=== PATIENT | female | born 1985 | race Caucasian/White ===

== ENCOUNTER 2022-09-29 23:53 | Emergency (ER) | payer BC, MEDICAID ==
[2022-09-30] MEDS ORDERED: Sodium Chloride 0.9% 10 ML Syringe FLUSH PRN (00:14)
[2022-09-30] MEDS ORDERED: levETIRAcetam Soln 500 MG/5 ML Cup PO ONE (00:15)
[2022-09-30 00:24] LABS: BASOPHILS ABSOLUTE AUTO 0.1 x10^3/uL (0.0-0.2); BASOPHILS PERCENT AUTO 0.7 % (0.2-1.2); EOSINOPHILS ABSOLUTE AUTO 0.3 x10^3/uL (0.0-0.5); HEMATOCRIT 36.4 % (33.0-47.0); IMMATURE GRAN ABSOLUTE AUTO 0.01 x10^3/uL (0.00-0.07); LYMPHOCYTES ABSOLUTE AUTO 2.8 x10^3/uL (1.0-4.8); LYMPHOCYTES PERCENT AUTO 29.1 % (25.0-50.0); MEAN CORPUSCULAR HGB CONC 35.7 g/dL (32.0-36.0); MEAN CORPUSCULAR VOLUME 84.1 fL (78.0-93.0); MONOCYTES ABSOLUTE AUTO 1.1 x10^3/uL (0.0-0.8); MONOCYTES PERCENT AUTO 11.6 % (2.0-11.0); NEUTROPHILS ABSOLUTE AUTO 5.3 x10^3/uL (1.8-7.7); NEUTROPHILS PERCENT AUTO 55.5 % (50.0-80.0); PLATELET COUNT,PLT 271 x10^3/uL (130-400); RED BLOOD CELL COUNT 4.33 x10^6/uL (4.00-5.50); WHITE BLOOD CELL COUNT,WBC 9.6 x10^3/uL (4.0-10.0)
[2022-09-30] MEDS ORDERED: levETIRAcetam 500 MG Tab PO ONE ×2 (00:33→00:37)
[2022-09-30 00:48] LABS: A/G RATIO 1.27; ALANINE AMINOTRANSFERASE,ALT 17 U/L (14-59); ALBUMIN 3.8 g/dL (3.4-5.0); ALKALINE PHOSPHATASE 48 U/L (46-116); ASPARTATE AMNIOTRANSFERASE,AST 17 U/L (15-37); BILIRUBIN TOTAL 0.3 mg/dL (0.2-1.0); BLOOD UREA NITROGEN,BUN 8 mg/dL (7-18); CALCIUM 8.6 mg/dL (8.5-10.1); CARBON DIOXIDE,CO2 27 mmol/L (21-32); CHLORIDE,CL 109 mmol/L (98-107); GLUCOSE RANDOM 78 mg/dL (70-99); PROTEIN TOTAL,TP 6.8 g/dL (6.4-8.2); SODIUM,NA 145 mmol/L (136-145); TSH ULTRASENSITIVE 1.172 uIU/mL (0.358-3.74)
[2022-09-30 00:49] LABS: ESTIMATED GFR 75 mL/min (>=60); ETHANOL BLOOD MEDICAL < 3 mg/dL (0-3)
[2022-09-30 01:27] LABS: APPEARANCE,URINE CLEAR (CLEAR); BILIRUBIN,URINE NEGATIVE (NEGATIVE); COLOR,URINE YELLOW (YELLOW); GLUCOSE,URINE NEGATIVE (NEGATIVE); KETONES,URINE 15 mg/dL (NEGATIVE); LEUKOCYTE ESTERASE,URINE NEGATIVE (NEGATIVE); NITRITE,URINE NEGATIVE (NEGATIVE); OCCULT BLOOD,URINE NEGATIVE (NEGATIVE); PH,URINE 6.5 (5.0-8.0); PROTEIN,URINE NEGATIVE (NEGATIVE); UROBILINOGEN,URINE 0.2 EU/dL (0.2)
[2022-09-30 01:31] LABS: AMPHETAMINES SCREEN, URINE NEGATIVE (NEGATIVE); BARBITURATE SCREEN,URINE NEGATIVE (NEGATIVE); BENZODIAZEPINES SCREEN,URINE NEGATIVE (NEGATIVE); BUPRENORPHINE SCREEN,URINE NEGATIVE (NEGATIVE); COCAINE METABOLITES,URINE NEGATIVE (NEGATIVE); METHADONE SCREEN, URINE NEGATIVE (NEGATIVE); METHAMPHETAMINE SCREEN, URINE NEGATIVE (NEGATIVE); OXYCODONE SCREEN,URINE NEGATIVE (NEGATIVE); PCP SCREEN,URINE NEGATIVE (NEGATIVE); THC SCREEN,URINE 50 NG/ML NEGATIVE (NEGATIVE)
== END 2022-09-30 02:00 | disposition home or self-care (01) ==
LOC: VM.ED 23:53
DX: R56.9 Unspecified convulsions (principal)
CPT/HCPCS: 70450; 80053; 80305-QW; 80307; 81003; 81025; 84443; 85025; 96374; 99284; 99284-25; A9270-GY; J3360